=== PATIENT | male | born 1960 | race American Indian/Alaskan Native ===

== ENCOUNTER 2019-05-18 08:06 | Emergency (ER) | payer OTHER ==
[2019-05-18 08:12] VITALS: BP 147/89
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
--- NOTE | 2019-05-18 10:04 | XRay Report ---
BILATERAL RIBS WITH PA CHEST, 4 VIEWS INDICATION: midsternal CP. COMPARISON: None. IMPRESSION: No displaced rib deformity is detected. Single view of the chest is within normal limit s. The lungs are well-aerated. Signer Name: Gold Baez Jr, MD Signed: 05/18/2019 10:00 AM Workstation Name: [id number]
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
== END 2019-05-18 11:26 | disposition home or self-care (01) ==
LOC: ED 08:06
DX: R07.89 Other chest pain (principal); Z79.1 Long term (current) use of non-steroidal anti-inflammatories (NSAID); Z79.899 Other long term (current) drug therapy; V49.49XA Driver injured in collision with other motor vehicles in traffic accident, initial encounter; Y93.89 Activity, other specified; Y92.89 Other specified places as the place of occurrence of the external cause; Y99.8 Other external cause status
CPT/HCPCS: 70450; 71111; 93005; 93010